=== PATIENT | female | born 1975 | race Caucasian/White ===

== ENCOUNTER 2016-05-19 18:22 | Emergency (ER) | payer OTHER ==
--- NOTE | ~2016-05-19 | CR63 ---
[facility] A Service of [facility] RADIOLOGY TEXT RESULTS PATIENT: GUADALUPE ZHOU LOCATION: SED : 71 UNIT #: [id number] AGE: [address]: STEPHANIE MCFADDEN SEX: F ORDER DR: [id number] [place] [id number] E MR#: [id number] Acc #: [id number] NAME: GUADALUPE ZHOU : 1975 SEX: F STUDY DATE/TIME: 05/19/2016 18:28 UNIT: SED ROOM: STUDY DESCRIPTION: CR Chest 2 View Ordering Physician: [facility] MEDICAL IMAGING REPORT This report is preliminary unless electronic signature is present. EXAM PA and lateral chest 2 views 05/19/2016 COMPARISON STUDIES None. HISTORY Cough and congestion for 1 week. FINDINGS PA and lateral examination of the chest upright shows a good expansion of the parenchyma with a normal distribution of the pulmonary vascularity. There is no indication of congestion, effusion, infiltrate, tumor, or nodular density. The pleural reflections and diaphragmatic contours are normal. The cardiac silhouette and mediastinal anatomy is within normal limits. IMPRESSION Normal chest. Dictated by... Oliver Godinez M.D. THIS IS AN ELECTRONICALLY VERIFIED REPORT Oliver Godinez M.D. at 05/23/2016 4:33 PM TEV/pcl TD: 05/19/2016 23:05 JOB #: [id number] [facility] A Service of [facility] RADIOLOGY TEXT RESULTS PATIENT: GUADALUPE ZHOU LOCATION: SED : 71 UNIT #: [id number] AGE: [address]: STEPHANIE MCFADDEN SEX: F ORDER DR: MEDICAL IMAGING REPORT
[2016-05-19 17:25] LABS: INFLUENZA A NEG (NEG); INFLUENZA B NEG (NEG)
[2016-05-19 17:57] LABS: URINE APPEARANCE CLEAR; URINE BILIRUBIN NEG (NEG); URINE BLOOD NEG (NEG); URINE COLOR YELLOW; URINE GLUCOSE NEG (NORM); URINE KETONE NEG (NEG); URINE LEUKOCYTE ESTERASE 2+ (NEG); URINE NITRATE NEG (NEG); URINE PROTEIN NEG (NEG); URINE SOURCE CLEAN CATCH; URINE SPECIFIC GRAVITY <=1.005 (1.003-1.035); URINE UROBILINOGEN 0.2 MG/DL (NORM)
[2016-05-19 17:58] LABS: MICRO INDICATED? YES
[2016-05-19 18:04] LABS: CULTURE INDICATED? NO; URINE BACTERIA NEG (NEG); URINE RBC NEG /[HPF] (0-2); URINE SQUAMOUS EPITHELIAL CELL OCCAS /[HPF]; URINE WBC 0-2 /[HPF] (0-5)
[2016-05-24 19:11] LABS: CHLAMYDIA TRACH Not Detected (Not Detected); N GONOR Not Detected (Not Detected)
== END 2016-05-19 19:38 | disposition home or self-care (01) ==
LOC: SED 18:22
PROVIDERS: Nurse Practitioner; Physician Assistant
DX: J06.9 Acute upper respiratory infection, unspecified (principal); A59.01 Trichomonal vulvovaginitis; F17.210 Nicotine dependence, cigarettes, uncomplicated
CPT/HCPCS: 71020; 81003; 84703; 87210; 87491; 87591; 87651; 87804; 87808; 87905; 96372; 99284; J0696